=== PATIENT | female | born 1985 | race Native Hawaiian/Other Pacific Islander ===

== ENCOUNTER 2016-06-02 22:34 | Emergency (ER) | payer OTHER ==
[~2016-06-02] VITALS: Ht 157.5 cm; Wt 98.9 kg
[2016-06-02 23:35] VITALS: BP 150/105; TEMP 98.2
== END 2016-06-02 23:39 | disposition home or self-care (01) ==
LOC: ED 22:34
DX: L02.214 Cutaneous abscess of groin (principal)
CPT/HCPCS: 96372; 99283; J0696